=== PATIENT | male | born 1960 | race Caucasian/White ===

== ENCOUNTER 2018-07-06 05:34 | Day surgery (SDC) | payer OTHER ==
[2018-07-06] MEDS: CEFAZOLIN 2 GM/50 ML (PMX) 50 ML IVPB (07:00)
[2018-07-06] MEDS ORDERED: GELATIN SIZE 100 SPONGE (07:36)
[2018-07-06] MEDS ORDERED: THROMBIN 5000 UNIT VIAL (07:36)
[2018-07-06] MEDS ORDERED: POLYMYXIN/BACITRACIN 1L IRRIG (07:38)
[2018-07-06] MEDS ORDERED: NEOSTIGMINE 3 MG/3 ML SYRINGE ×2 (07:52→08:54)
[2018-07-06] MEDS ORDERED: PROPOFOL 20 ML (07:52)
[2018-07-06] MEDS ORDERED: GLYCOPYRROLATE 0.4 MG INJ ×3 (07:52→08:54)
[2018-07-06] MEDS ORDERED: ROCURONIUM 50 MG INJ ×2 (07:52→08:54)
[2018-07-06] MEDS ORDERED: LIDOCAINE 2% (SDV) 5 ML INJ (07:52)
[2018-07-06] MEDS ORDERED: SUCCINYLCHOLINE CHLORIDE 100 MG/5 ML SYG IV (07:52)
[2018-07-06] MEDS ORDERED: MEPERIDINE 100 MG INJ (07:53)
[2018-07-06] MEDS ORDERED: CEPASTAT LOZENGE MT (08:00)
[2018-07-06] MEDS ORDERED: NALOXONE (0.4 MG/ML) INJ IV (08:00)
[2018-07-06] MEDS ORDERED: DIPHENHYDRAMINE 50 MG INJ IV ×2 (08:00→10:30)
[2018-07-06] MEDS ORDERED: DIPHENHYDRAMINE 25 MG CAP PO (08:00)
[2018-07-06] MEDS ORDERED: PROCHLORPERAZINE 10 MG TAB PO (08:00)
[2018-07-06] MEDS ORDERED: ONDANSETRON 4 MG INJ IV (08:00)
[2018-07-06] MEDS ORDERED: HEPARIN 1000 UNITS/ML 10 ML INJ (08:43)
[2018-07-06] MEDS ORDERED: CEFAZOLIN 1 GM INJ (08:55)
[2018-07-06] MEDS ORDERED: ONDANSETRON 4 MG INJ (08:55)
[2018-07-06] MEDS ORDERED: EPHEDrine 25 MG/5 ML SYG (08:55)
[2018-07-06] MEDS: BUPIVACAINE 0.25% (MPF) 30 ML INJ INJ ×2 (09:30→10:30)
[2018-07-06] MEDS: POLYMYXIN/BACITRACIN 1L IRRIG IRR ×2 (09:32→10:30)
[2018-07-06] MEDS: THROMBIN 5000 UNIT VIAL TOP ×2 (09:33→10:30)
[2018-07-06] MEDS: BUPIVACAINE 0.5%/EPI (SDV) 30 ML INJ (10:30)
[2018-07-06] MEDS ORDERED: hydrALAzine 20 MG INJ IV (10:30)
[2018-07-06] MEDS: CA CHLORIDE 10% 10 ML SYRINGE (10:30)
[2018-07-06] MEDS ORDERED: EPHEDrine 25 MG/5 ML SYG IV (10:30)
[2018-07-06] MEDS: FENTAnyl 50 MCG/ML VIAL (10:30)
[2018-07-06] MEDS ORDERED: LABETALOL HCL 20MG INJ IV (10:30)
[2018-07-06] MEDS ORDERED: FENTAnyl 50 MCG/ML VIAL IV (10:30)
[2018-07-06] MEDS ORDERED: METOCLOPRAMIDE 10 MG INJ IV (10:30)
[2018-07-06] MEDS ORDERED: MIDAZOLAM 1 MG/ML 2 ML INJ IV (10:30)
[2018-07-06] MEDS ORDERED: MEPERIDINE 25 MG INJ IV (10:30)
[2018-07-06] MEDS: ONDANSETRON 4 MG INJ IV (10:53)
[2018-07-06] MEDS: FENTAnyl 50 MCG/ML VIAL IV ×3 (10:53→11:23)
[2018-07-06] MEDS: CEFAZOLIN 1 GM/50 ML (PMX) 50 ML IVPB (11:04)
[2018-07-06] MEDS: HYDROmorphONE 2 MG TAB PO (11:35)
== END 2018-07-06 12:47 | disposition home or self-care (01) ==
LOC: SDS 05:34
DX: T85.192A Other mechanical complication of implanted electronic neurostimulator of spinal cord electrode (lead), initial encounter (principal); Y79.3 Surgical instruments, materials and orthopedic devices (including sutures) associated with adverse incidents; Y83.8 Other surgical procedures as the cause of abnormal reaction of the patient, or of later complication, without mention of misadventure at the time of the procedure; I10 Essential (primary) hypertension
CPT/HCPCS: 63664; 72100; 86999